=== PATIENT | female | born 1995 | race Two or more races ===

== ENCOUNTER 2019-12-02 17:56 | Emergency (ER) | payer MEDICAID ==
[~2019-12-02] VITALS: Ht 154.9 cm; Wt 67.0 kg
[2019-12-02 17:59] VITALS: BP 105/64
== END 2019-12-02 19:05 | disposition home or self-care (01) ==
LOC: EMS 17:56
DX: U07.1 COVID-19 (principal); R50.9 Fever, unspecified
CPT/HCPCS: 99283; U0003

== ENCOUNTER 2023-09-20 21:51 | Emergency (ER) | payer MEDICAID, OTHER ==
[~2023-09-20] VITALS: Ht 152.4 cm; Wt 69.0 kg
[2023-09-20 22:03] VITALS: BP 100/72; PULSE 80; RESP 16; TEMP 98.1
[2023-09-20] MEDS: ACETAMINOPHEN 325 MG TABLET PO ONE (23:43)
== END 2023-09-21 00:13 | disposition home or self-care (01) ==
LOC: EMS 21:52
DX: S80.01XA Contusion of right knee, initial encounter (principal); X58.XXXA Exposure to other specified factors, initial encounter; Y93.89 Activity, other specified; Y92.89 Other specified places as the place of occurrence of the external cause; Y99.8 Other external cause status
CPT/HCPCS: 99283